=== PATIENT | male | born 1950 | race Caucasian/White ===

== ENCOUNTER 2017-12-29 19:09 | Inpatient (IN) ==
--- NOTE | 2017-12-30 00:22 | P.HPIM ---
History of Present Illness Primary Care Physician: Tomasz Love MD Chief Complaint: Left forearm redness History of Present Illness: 67 y/o male with a history of HTN, DM, Colon cancer, and CAD presented to the ED with complaints of redness and pain to the Left forearm. He states on Saturday he developed a red spot and over the past 2 days it got worse and became inflamed and itching. He denies getting bit by anything or any trauma. No fever , chills, chest pain. He does complain of rib pain when taking a deep breath, intermittently. Inpatient Certification: I certify that the inpatient services were ordered in accordance with Medicare regulations governing the order. This includes certification that hospital inpatient services are reasonable and necessary and in the case of services not specified as inpatient-only under 42 CFR 419.22(n), that they are appropriately provided as inpatient services in accordance to with the 2-midnight benchmark under 43 CFR 412.3(e) Estimated Total Length of Stay (Days): 2 Plans for Post Hospital Care: Home Review of Systems All other systems reviewed negative except as stated in HPI [facility] - History History Provided By: Patient - Medical History Medical History: Medical History (Last Reviewed 12/29/17 @ 17:25 by SHERLY Alexandre) Anxiety Colostomy in place Depression Diabetes GERD (gastroesophageal reflux disease) Hx of colon cancer, stage III Hypertension Osteoarthritis - Surgical History Surgical History: Surgical History (Last Updated 12/29/17 @ 17:05 by Ginger Shannon RN) History of colon resection Hx of heart artery stent Hx of tonsillectomy - Family History Family History: Family History (Last Updated 12/30/17 @ 00:49 by MARTHA Bueno) Brother Family history of colon cancer Father Emphysema lung Mother Emphysema lung - Tobacco History Second Hand Smoke Exposure: No Tobacco Use In Past 30 Days: No Smoking Status: Former smoker (quit 19 years ago) Tobacco Type: Cigarettes - Alcohol History How Often Do You Have a Drink Containing Alcohol: Monthly or less - Substance Use History Substance History: No History of Abuse Medications and Allergies Allergies Allergy/AdvReac Type Severity Reaction Status Date / Time No Known Allergies Allergy Verified 12/29/17 16:48 Home Medications Medication Instructions Recorded Confirmed Type buspirone 5 mg PO TID 12/29/17 12/29/17 History citalopram 40 mg PO DAILY 12/29/17 12/29/17 History lisinopril 5 mg PO DAILY 12/29/17 12/29/17 History meloxicam 7.5 mg PO DAILY 12/29/17 12/29/17 History metformin 1,000 mg PO BID 12/29/17 12/29/17 History metoprolol tartrate 50 mg PO BID 12/29/17 12/29/17 History pantoprazole 20 mg PO BID 12/29/17 12/29/17 History pregabalin [Lyrica] 75 mg PO BID 12/29/17 12/29/17 History ranolazine [Ranexa] 500 mg PO Q12H 12/29/17 12/29/17 History vortioxetine [Trintellix] 10 mg PO DAILY 12/29/17 12/29/17 History Exam Narrative: GENERAL: This is a well-nourished, well-developed patient, in no apparent distress. SKIN: Left forearm cellulites, no drainage CARDIOVASCULAR: Regular rate and rhythm without murmurs, gallops, or rubs. RESPIRATORY: Clear to auscultation. Breath sounds equal bilaterally. No wheezes , rales, or rhonchi. GASTROINTESTINAL: Abdomen soft, non-tender, nondistended. Normal active bowel sounds MUSCULOSKELETAL: Extremities without clubbing, cyanosis, or edema. NEURO: Alert & Oriented x4 to person, place, time, situation. Moves all ext x4 Caprini VTE Risk Assessment Caprini VTE Risk Assessment: No/Low Risk (score <= 1) Caprini Risk Assessment Model: Point Value = 1 Point Value = 2 Point Value = 3 Point Value = 5 Age 41-60 Minor surgery BMI > 25 kg/m2 Swollen legs Varicose veins or History of unexplained or recurrent spontaneous Oral contraceptives or hormone replacement Sepsis (< 1 month) Serious lung disease, including pneumonia (< 1 month) Abnormal pulmonary function Acute myocardial infarction Congestive heart failure (< 1 month) History of inflammatory bowel disease Medical patient at bed rest Age 61-74 Arthroscopic surgery Major open surgery (> 45 min) Laparoscopic surgery (> 45 min) Malignancy Confined to bed (> 72 hours) Immobilizing plaster cast Central venous access Age >= 75 History of VTE Family history of VTE Factor V Leiden Prothrombin [id number] Lupus anticoagulant Anticardiolipin antibodies Elevated serum homocysteine Heparin-induced thrombocytopenia Other congenital or acquired thrombophilia Stroke (< 1 month) Elective arthroplasty Hip, pelvis, or leg fracture Acute spinal cord injury (< 1 month) Prophylaxis Regimen: Total Risk Factor Score Risk Level Prophylaxis Regimen 0-1 Low Early ambulation 2 Moderate Order ONE of the following: *Sequential Compression Device (SCD) *Heparin 5000 units SQ BID 3-4 Higher Order ONE of the following medications: *Heparin 5000 units SQ TID *Enoxaparin/Lovenox 40 mg SQ daily (WT < 150 kg, CrCl > 30 mL/min) *Enoxaparin/Lovenox 30 mg SQ daily (WT < 150 kg, CrCl > 10-29 mL/min) *Enoxaparin/Lovenox 30 mg SQ BID (WT < 150 kg, CrCl > 30 mL/min) AND/OR *Sequential Compression Device (SCD) 5 or more Highest Order ONE of the following medications: *Heparin 5000 units SQ TID (Preferred with Epidurals) *Enoxaparin/Lovenox 40 mg SQ daily (WT < 150 kg, CrCl > 30 mL/min) *Enoxaparin/Lovenox 30 mg SQ daily (WT < 150 kg, CrCl > 10-29 mL/min) *Enoxaparin/Lovenox 30 mg SQ BID (WT < 150 kg, CrCl > 30 mL/min) AND *Sequential Compression Device (SCD) Assessment and Plan - Plan 67 y/o male with a history of HTN, DM, Colon cancer, and CAD presented to the ED with complaints of redness and pain to the Left forearm. Cellulitis, left forearm, SIRS with elevated lactic acid -IV antibiotics: Zosyn and Vancomycin -Cont IVF -Blood cultures pending Hyperglycemia, in patient with DM -Accu checks with SSI Hypertension, chronic -resume home medications, resume home medications DVT prophylaxis: SCDs Discussed Condition With: Patient and RN
[2017-12-30] MEDS ORDERED: Acetaminophen 325 MG Tablet PO PRN (00:23)
[2017-12-30] MEDS ORDERED: Dextrose 50% in Water 50 ML Vial IV.PUSH PRN (00:28)
[2017-12-30] MEDS ORDERED: Sod Chloride 0.9% Inj 1,000 ML IV.CONT SCH (00:30)
[2017-12-30] MEDS ORDERED: Vancomycin Consult Pharmacy 1 EACH OTHER SCH (01:00)
[2017-12-30] MEDS: Piperacil/Tazo 3.375 GM Premix 50 ML IV.SIG SCH ×3 (01:09→12:44)
[2017-12-30] MEDS: Vancomycin Inj 500 MG in Sodium Chlor 0.9% Inj 100 ML IV.SIG ONE ×2 (01:11→01:35)
--- NOTE | 2017-12-30 06:56 | XR ---
EXAM DATE: 12/30/2017 6:52 AM EDT AGE/SEX: 67 years / Male INDICATIONS: Short of breath, evaluate infiltrate CLINICAL DATA: This is the patient's initial encounter. Patient reports that signs and symptoms have been present for 2 days and indicates a pain score of 5/10. MEDICAL/SURGICAL HISTORY: Carcinoma, colon. Cardiovascular disease. Diabetes mellitus type II . cellulitis Colon resection. Colostomy. Coronary artery stent. COMPARISON: No prior exams available for comparison. FINDINGS: A single AP view of the chest demonstrates the lungs to be symmetrically aerated without evidence of mass, infiltrate or effusion. The cardiomediastinal contours are unremarkable. Osseous structures a re intact. Left-sided port with tip in the cavoatrial junction. CONCLUSION: No acute cardiopulmonary disease Electronically signed by: King José MD 12/30/2017 6:55 AM EDT
--- NOTE | 2017-12-30 07:38 | P.PN ---
Subjective Interval history: 67 y/o male with a history of HTN, DM, Colon cancer, and CAD presented to the ED with complaints of redness and pain to the Left forearm. He states on Saturday he developed a red spot and over the past 2 days it got worse and became inflamed and itching. He denies getting bit by anything or any trauma. No fever , chills, chest pain. He does complain of rib pain when taking a deep breath, intermittently. 12/30 - patient states left arm is unchanged. He has continued pain, swelling and redness. He states [place] is not helping. He has hx of right ankle fracture last year with no followup. He also reports hx of colon cancer s/p resection and colostomy 3 years ago. He actively follows with Dr. Moreno in [place]. He denies any fever or chills. He denies any chest pain or shortness of breath. He is afebrile. VSS except for elevated BP. Physical Exam Vital signs: Vital Signs 12/30/17 00:00 12/30/17 00:33 Temperature 98.5 F 98.1 F Pulse Rate 89 92 H Respiratory Rate 18 18 Blood Pressure 183/77 H 211/97 H Pulse Oximetry 99 97 Intake & Output 12/29/17 12/30/17 12/30/17 18:59 06:59 18:59 Intake Total 50 / 50 Balance 50 / 50 Weight 63.503 kg Intake: IV 50 / 50 Zosyn 3.375 GM Premix 50 ML @ 50 / 50 100 mls/hr IV.SIG Q6H [facility] Rx#: [id number] Other: Date of Last Bowel Movement 12/29/17 Weight On Admission 63.796 kg Narrative: GENERAL: WDWN male patient, INAD. Awake and alert. Oriented x 4. SKIN: Warm and dry. LUE + mild edema in hand extending up forearm with significant erythema and warmth over volar surface. +Tender to palpation. No discrete abscess appreciated. HEAD: Atraumatic. Normocephalic. EYES: Pupils equal and round. No scleral icterus. No injection or drainage. ENT: No nasal bleeding or discharge. Mucous membranes pink and moist. NECK: Trachea midline. No JVD. CARDIOVASCULAR: Regular rate and rhythm. No murmur appreciated. RESPIRATORY: No accessory muscle use. Clear to auscultation. Breath sounds equal bilaterally. GASTROINTESTINAL: Abdomen soft, non-tender, nondistended. +Colostomy LLQ. MUSCULOSKELETAL: LUE as stated above. Right ankle with edema noted around ankle. Decreased ROM. NEUROLOGICAL: Awake and alert. No obvious cranial nerve deficits. Motor grossly within normal limits. No focal neurologic finding appreciated. Normal speech. PSYCHIATRIC: Appropriate mood and affect; insight and judgment normal. Results - Labs CBC & Chem 7: 12/30/17 08:05 12/30/17 08:05 Laboratory Results - last 24 hr 12/30/17 07:28 POC Glucose 254 H - Imaging Impressions Chest X-Ray 12/30/17 00:00 CONCLUSION: No acute cardiopulmonary disease - Procedures None Assessment and Plan - Assessment (1) Cellulitis of arm, left Code(s): L03.114 - Cellulitis of left upper limb Status: Acute (2) SIRS (systemic inflammatory response syndrome) Code(s): R65.10 - Systemic inflammatory response syndrome (SIRS) of non- infectious origin without acute organ dysfunction Status: Acute (3) Diabetes mellitus with hyperglycemia Code(s): E11.65 - Type 2 diabetes mellitus with hyperglycemia Status: Acute - Plan 67 y/o male with a history of HTN, DM, Colon cancer, and CAD presented to the ED with complaints of redness and pain to the Left forearm. Cellulitis, left forearm, SIRS with elevated lactic acid -continue on IV abx Zosyn and Vancomycin - pharmacy to dose -Consult ID, appreciate assistance -Obtain soft tissue US LUE r/o underlying abscess -Blood cultures pending, continue to follow until finalized -monitor clinically for improvement -pain management with bowel regimen -PT/OT eval/tx Hyperglycemia, in patient with DM -obtain Hgb A1c -continue patient on home dose of Metformin -continue Accu checks with SSI -change to diabetic diet Hypertension, chronic, uncontrolled -resume on home medications -Clonidine prn with parameters -monitor BP and adjust treatment accordingly CAD s/p cardiac stent patient has no cardiac complaints at present -Continue on home dose of Ranexa -monitor Hx of right ankle fracture patient did not follow up with orthopedic as outpatient due to insurance costs -obtain XR right ankle -PT eval/tx Depression -continue on home dose of Buspar and Celexa DVT prophylaxis: SCDs Code Status: FULL Discussed Condition With: patient, nursing staff, CM Discharge Planning: Not ready for discharge. Discharge pending clinical improvement and ID clearance.
[2017-12-30] MEDS: Meloxicam 7.5 MG Tablet PO SCH (08:46)
[2017-12-30] MEDS: Lisinopril 5 MG Tablet PO SCH (08:47)
[2017-12-30] MEDS: Ranolazine 500 MG 12HR ER Tablet PO SCH ×2 (08:47→22:21)
[2017-12-30] MEDS: Pantoprazole Sodium 20 MG DR Tablet PO SCH ×2 (08:47→22:21)
[2017-12-30] MEDS: Pregabalin 75 MG Capsule PO SCH ×2 (08:47→22:20)
[2017-12-30] MEDS: Metoprolol Tartrate 50 MG Tablet PO SCH ×2 (08:47→22:20)
[2017-12-30] MEDS: Insulin NovoLOG Aspart Correctional Sugar Inj SQ SCH ×4 (08:48→22:22)
[2017-12-30 09:26] LABS: Baso % (Auto) 0.6 % (0.0-2.0); Eos # (Auto) 0.2 th/mm3 (0.0-0.4); Eos % (Auto) 3.2 % (0.0-4.0); Hematocrit 32.8 % (39.0-51.0); Hemoglobin 11.2 gm/dL (13.0-17.0); Lymph # (Auto) 1.8 th/mm3 (1.0-4.8); Lymph % (Auto) 23.7 % (9.0-44.0); Mean Corpuscular HGB Conc 34.1 % (32.0-36.0); Mean Corpuscular Hemoglobin 31.6 pg (27.0-34.0); Mean Corpuscular Volume 92.6 fL (80.0-100.0); Mean Platelet Volume 8.4 fL (7.0-11.0); Mono # (Auto) 0.6 th/mm3 (0.0-0.9); Mono % (Auto) 8.4 % (0.0-8.0); Neut # (Auto) 4.8 th/mm3 (1.8-7.7); Neut % (Auto) 64.1 % (16.0-70.0); Platelet Count 126 th/mm3 (150-450); Red Blood Count 3.54 mil/mm3 (4.50-5.90); Red Cell Distribution Width 14.9 % (11.6-17.2); White Blood Count 7.5 th/mm3 (4.0-11.0)
[2017-12-30 09:49] LABS: Albumin 2.3 g/dL (3.4-5.0); Anion Gap 7 meq/L (5-15); Aspartate Aminotransferase 41 U/L (15-37); Blood Urea Nitrogen 17 mg/dL (7-18); Calcium 7.9 mg/dL (8.5-10.1); Carbon Dioxide 24.6 meq/L (21.0-32.0); Chloride 102 meq/L (98-107); Glomerular Filtration Rate Greater Than 89 mL/min (>89); Glucose,Random 263 mg/dL (74-106); Potassium 3.8 meq/L (3.5-5.1); Sodium 134 meq/L (136-145)
[2017-12-30 09:51] LABS: Alanine Aminotransferase 62 U/L (12-78)
[2017-12-30 09:52] LABS: Alkaline Phosphatase 203 U/L (45-117); Total Protein 7.7 g/dL (6.4-8.2)
--- NOTE | 2017-12-30 10:21 | US ---
EXAM DATE: 12/30/2017 10:03 AM EDT AGE/SEX: 67 years / Male INDICATIONS: Left forearm pain and redness. Cellulitis. CLINICAL DATA: This is the patient's initial encounter. Patient reports that signs and symptoms have been present for 4 - 6 days and indicates a pain score of 3/10. MEDICAL/SURGICAL HISTORY: Gastroesophageal reflux disease. Diabetes. Osteoarthritis. Colon c ancer. HTN. CAD. Colon resection. Tonsillectomy. Colostomy. COMPARISON: No prior exams available for comparison. FINDINGS: Cellulitis without deep space fluid collection CONCLUSION: 1. Negative for abscess Electronically signed by: Lizandro Hernandez MD 12/30/2017 10:20 AM EDT
--- NOTE | 2017-12-30 11:17 | XR ---
EXAM DATE: 12/30/2017 11:07 AM EDT AGE/SEX: 67 years / Male INDICATIONS: Right ankle pain. CLINICAL DATA: This is the patient's initial encounter. Patient reports that signs and symptoms have been present for > 1 year and indicates a pain score of 8/10. MEDICAL/SURGICAL HISTORY: . cellulitis and injury 1 year ago., diabetic None. COMPARISON: No prior exams available for comparison. FINDINGS: Significant pes planus deformity generalized soft tissue swelling and degenerative changes about the ankle. Ankle fracture is not appreciated. Significant degenerative changes at the tarsal joints. 3 views of the foot are suggested. CONCLUSION: Negative for ankle fracture. Marked soft tissue swelling. 3 views of the foot are suggested. Electronically signed by: Lizandro Hernandez MD 12/30/2017 11:15 AM EDT
--- NOTE | 2017-12-30 11:40 | P.CONID ---
History of Present Illness Service: Infectious disease Consult date: 12/30/17 Requesting Physician: Ginger Spivey Reason for Consult: Evaluation and Mment of Left foream cellulitis. Primary Care Provider: Tomasz Love MD Chief Complaint: Left forearm redness History of Present Illness: is a 67 y/o CM with medical history significant for coronary artery disease, hypertension, diabetes as well as colon cancer. Regarding his colon cancer he reports that his last chemotherapy was approximately 1.[address] abdomen pelvis and further evaluation revealed that he is now in remission. He reports following with an oncologist in [place]. He has a port that was used for chemotherapy in the past and has not been accessed recently. Patient reports that he presented to the emergency department with redness and pain to the left forearm. He reports that it started a day or 2 prior to admission when he noted a red spot which looked like a pimple which he tried to mess with an open it up. Subsequently he noticed that this area became worse with increased erythema and itching. Patient denies any fever chills chest pain shortness of breath. Patient denies any pain in his left shoulder. Patient denies any night sweats or weight loss. Patient has been started on empiric antibiotics and infectious disease is consulted for evaluation and management of left forearm cellulitis. Review of Systems All other systems reviewed negative except as stated in HPI [facility] - History History Provided By: Patient - Medical History Medical History: Medical History (Last Reviewed 12/29/17 @ 17:25 by SHERLY Alexandre) Anxiety Colostomy in place Depression Diabetes GERD (gastroesophageal reflux disease) Hx of colon cancer, stage III Hypertension Osteoarthritis - Surgical History Surgical History: Surgical History (Last Updated 12/29/17 @ 17:05 by Ginger Shannon RN) History of colon resection Hx of heart artery stent Hx of tonsillectomy - Family History Family History: Family History (Last Updated 12/30/17 @ 00:49 by MARTHA Bueno) Brother Family history of colon cancer Father Emphysema lung Mother Emphysema lung - Tobacco History Second Hand Smoke Exposure: No Tobacco Use In Past 30 Days: No Smoking Status: Former smoker Tobacco Type: Cigarettes - Alcohol History How Often Do You Have a Drink Containing Alcohol: Monthly or less - Substance Use History Substance History: No History of Abuse - Travel History Recent Travel in the [facility] Within the Last 8 Weeks: No Recent Travel Out of the Country Within the Last 8 Weeks: No - Immunization History Hx Influenza Vaccine This Season: Yes Medications and Allergies Active Medications: Active Medications Acetaminophen (Tylenol) 650 mg PO Q4H PRN PRN Reason: Temp > 100.4 Hydrocodone Bitart/Acetaminophen (Chapin 5/325) 1 tab PO Q4H PRN PRN Reason: Pain 1 to 10 Last Admin: 12/30/17 08:47 Dose: 1 tab Buspirone HCl (Buspar) 5 mg PO TID [facility] Last Admin: 12/30/17 08:47 Dose: 5 mg Citalopram Hydrobromide (Celexa) 40 mg PO DAILY [facility] Last Admin: 12/30/17 08:47 Dose: 40 mg Clonidine HCl (Catapres) 0.1 mg PO Q6H PRN PRN Reason: SBP>180, DBP>95 Dextrose (D50w Vial) 50 ml IV.PUSH UNSCH PRN PRN Reason: PER HYPOGLYCEMIA PROTOCOL Glucagon (Glucagon Inj) 1 mg OTHER PRN PRN PRN Reason: for Hypoglycemia Protocol Pharmacy Profile Note (Vancomycin Consult Pharmacy) 0 mls @ 0 mls/hr OTHER UNSCH [facility] Piperacillin/Tazobactam/Dextrose (Zosyn 3.375 Gm Premix) 50 mls @ 100 mls/hr IV.SIG Q6H [facility] Last Infusion: 12/30/17 08:06 Dose: Infused Vancomycin HCl 1,000 mg/ (Sodium Chloride) 250 mls @ 250 mls/hr IV.SIG Q12H [facility] Insulin Aspart (Novolog Insulin Correctional Sugar Inj) 0 unit SQ ACHS [facility]; Protocol Last Admin: 12/30/17 08:48 Dose: 7 unit Lisinopril (Prinivil) 5 mg PO DAILY [facility] Last Admin: 12/30/17 08:47 Dose: 5 mg Meloxicam (Mobic) 7.5 mg PO DAILY [facility] Last Admin: 12/30/17 08:46 Dose: 7.5 mg Metformin HCl (Glucophage) 1,000 mg PO BID [facility] Last Admin: 12/30/17 08:47 Dose: 1,000 mg Metoprolol Tartrate (Lopressor) 50 mg PO BID [facility] Last Admin: 12/30/17 08:47 Dose: 50 mg Miscellaneous Information ([facility] Ordered Lab Info) 0 each OTHER ONCE ONE Stop: 12/31/17 13:46 Non-Formulary Medication (Vortioxetine [Trintellix]) 10 mg PO DAILY [facility] Ondansetron HCl (Zofran Inj) 4 mg IV.PUSH Q6H PRN PRN Reason: NAUSEA OR VOMITING Pantoprazole Sodium (Protonix) 20 mg PO BID [facility] Last Admin: 12/30/17 08:47 Dose: 20 mg Pregabalin (Lyrica) 75 mg PO BID [facility] Last Admin: 12/30/17 08:47 Dose: 75 mg Ranolazine (Ranexa) 500 mg PO Q12H [facility] Last Admin: 12/30/17 08:47 Dose: 500 mg Sodium Chloride (Ns Flush) 2 ml IV.FLUSH BID [facility] Last Admin: 12/30/17 08:49 Dose: 2 ml Sodium Chloride (Ns Flush) 2 ml IV.FLUSH PRN PRN PRN Reason: FLUSH AFTER USING IV ACCESS Allergies Allergy/AdvReac Type Severity Reaction Status Date / Time No Known Allergies Allergy Verified 12/29/17 16:48 Home Medications Medication Instructions Recorded Confirmed Type buspirone 5 mg PO TID 12/29/17 12/29/17 History citalopram 40 mg PO DAILY 12/29/17 12/29/17 History lisinopril 5 mg PO DAILY 12/29/17 12/29/17 History meloxicam 7.5 mg PO DAILY 12/29/17 12/29/17 History metformin 1,000 mg PO BID 12/29/17 12/29/17 History metoprolol tartrate 50 mg PO BID 12/29/17 12/29/17 History pantoprazole 20 mg PO BID 12/29/17 12/29/17 History pregabalin [Lyrica] 75 mg PO BID 12/29/17 12/29/17 History ranolazine [Ranexa] 500 mg PO Q12H 12/29/17 12/29/17 History vortioxetine [Trintellix] 10 mg PO DAILY 12/29/17 12/29/17 History Exam Vital signs: Vital Signs 12/30/17 00:00 12/30/17 00:33 12/30/17 01:41 Temperature 98.5 F 98.1 F Pulse Rate 89 92 H 101 H Respiratory Rate 18 18 Blood Pressure 183/77 H 211/97 H Pulse Oximetry 99 97 12/30/17 04:00 12/30/17 04:47 12/30/17 08:00 Temperature 97.9 F 97.3 F L Pulse Rate 73 77 72 Respiratory Rate 18 22 Blood Pressure 175/74 H 186/77 H Pulse Oximetry 98 97 12/30/17 09:42 Temperature Pulse Rate Respiratory Rate 16 Blood Pressure Pulse Oximetry Intake & Output 12/29/17 12/30/17 12/30/17 18:59 06:59 18:59 Intake Total 50 / 50 1150 / 1150 Balance 50 / 50 1150 / 1150 Weight 63.503 kg Intake: IV 50 / 50 1150 / 1150 NS Inj 1,000 ML @ 100 mls/hr IV 1000 / 1000 .CONT .Q10H [facility] Rx#:[id number] Zosyn 3.375 GM Premix 50 ML @ 50 / 50 50 / 50 100 mls/hr IV.SIG Q6H [facility] Rx#: [id number] Vancomycin Inj 500 MG In NS Inj 100 / 100 100 ML @ 200 mls/hr IV.SIG ONCE ONE Rx#:[id number] Other: # Voids 2 Date of Last Bowel Movement 12/29/17 12/30/17 Weight On Admission 63.796 kg Narrative: GENERAL: Well-nourished well-developed, not in acute distress SKIN: Cool and dry, no generalized rash HEAD: Atraumatic. Normocephalic. No temporal or scalp tenderness. EYES: Pupils equal round and reactive. Scleral icterus. No injection or drainage. No petechia ENT: Nothing abnormal detected NECK: Trachea midline. Supple, nontender, no meningeal signs. CARDIOVASCULAR: HS audible. RESPIRATORY: Clear to auscultation bilaterally. GASTROINTESTINAL: Abdomen soft nontender. Ostomy and prior surgical site ok. MUSCULOSKELETAL: Left forearm with significant erythema and induration noted. Some wrinkling of the skin noted. No obvious fluid collection noted. Good range of movement at the wrist joint as well as fingers. NEUROLOGICAL: Alert oriented 3. Nonfocal. Psych cooperative IV line sites ok. Port site ok. Results - Labs CBC & Chem 7: 12/30/17 08:05 12/30/17 08:05 Labs: Laboratory Results - last 24 hr 12/30/17 12/30/17 12/30/17 07:10 07:28 08:05 WBC 7.5 RBC 3.54 L Hgb 11.2 L Hct 32.8 L MCV 92.6 MCH 31.6 MCHC 34.1 RDW 14.9 Plt Count 126 L MPV 8.4 Neut % (Auto) 64.1 Lymph % (Auto) 23.7 Banner % (Auto) 8.4 H Eos % (Auto) 3.2 Baso % (Auto) 0.6 Neut # (Auto) 4.8 Lymph # (Auto) 1.8 Banner # (Auto) 0.6 Eos # (Auto) 0.2 Baso # (Auto) 0.0 WBC Differential . Differential Comment Auto diff final Sodium Potassium Chloride Carbon Dioxide Anion Gap BUN Creatinine Estimated GFR POC Glucose 254 H Random Glucose Lactic Acid 1.0 Calcium Total Bilirubin AST ALT Alkaline Phosphatase Total Protein Albumin 12/30/17 12/30/17 08:05 11:09 WBC RBC Hgb Hct MCV MCH MCHC RDW Plt Count MPV Neut % (Auto) Lymph % (Auto) Banner % (Auto) Eos % (Auto) Baso % (Auto) Neut # (Auto) Lymph # (Auto) Banner # (Auto) Eos # (Auto) Baso # (Auto) WBC Differential Differential Comment Sodium 134 L Potassium 3.8 Chloride 102 Carbon Dioxide 24.6 Anion Gap 7 BUN 17 Creatinine 0.76 Estimated GFR Greater than 89 POC Glucose 312 H Random Glucose 263 H D Lactic Acid Calcium 7.9 L Total Bilirubin 0.7 AST 41 H ALT 62 Alkaline Phosphatase 203 H Total Protein 7.7 D Albumin 2.3 L - Imaging Impressions Ankle X-Ray 12/30/17 00:00 CONCLUSION: Negative for ankle fracture. Marked soft tissue swelling. 3 views of the foot are suggested. Chest X-Ray 12/30/17 00:00 CONCLUSION: No acute cardiopulmonary disease Upper Extremity Ultrasound 12/30/17 00:00 CONCLUSION: 1. Negative for abscess Assessment and Plan - Plan Left forearm cellulitis. Colon cancer with colostomy in place. Port in place. Immunocompromised host. CAD, HTN Recs: Continue Vanco IV (target 10-15) Discontinue Zosyn IV. Remove PIV line in left forearm (infected arm avoid IV lines on this LUE) DORIS wrap and elevation of LUE in sling as tolerated. If continues to improve will consider transition to oral antibiotics. Will follow in am to decide. amarilis RN about PIV and DORIS wrap elevation of LUE. amarilis patient plan for the day.
[2017-12-30] MEDS: Vancomycin Inj 1,000 MG in Sodium Chlor 0.9% Inj 250 ML IV.SIG SCH (15:41)
[2017-12-30 16:13] LABS: Hemoglobin A1c 9.4 % (4.3-6.0)
[2017-12-30] MEDS ORDERED: Insulin Detemir Inj 1,000 UNIT/10 ML Vial SQ SCH (21:00)
[2017-12-31] MEDS: Vancomycin Inj 1,000 MG in Sodium Chlor 0.9% Inj 250 ML IV.SIG SCH ×2 (01:22→16:30)
[2017-12-31 07:45] LABS: Baso % (Auto) 0.5 % (0.0-2.0); Eos # (Auto) 0.2 th/mm3 (0.0-0.4); Eos % (Auto) 3.5 % (0.0-4.0); Hematocrit 33.2 % (39.0-51.0); Hemoglobin 11.4 gm/dL (13.0-17.0); Lymph # (Auto) 1.7 th/mm3 (1.0-4.8); Lymph % (Auto) 24.3 % (9.0-44.0); Mean Corpuscular HGB Conc 34.2 % (32.0-36.0); Mean Corpuscular Hemoglobin 31.3 pg (27.0-34.0); Mean Corpuscular Volume 91.6 fL (80.0-100.0); Mean Platelet Volume 8.5 fL (7.0-11.0); Mono # (Auto) 0.6 th/mm3 (0.0-0.9); Mono % (Auto) 8.9 % (0.0-8.0); Neut # (Auto) 4.4 th/mm3 (1.8-7.7); Neut % (Auto) 62.8 % (16.0-70.0); Platelet Count 124 th/mm3 (150-450); Red Blood Count 3.62 mil/mm3 (4.50-5.90)
[2017-12-31 08:08] LABS: Calcium 8.2 mg/dL (8.5-10.1); Carbon Dioxide 25.3 meq/L (21.0-32.0); Potassium 3.9 meq/L (3.5-5.1)
[2017-12-31] MEDS: Insulin NovoLOG Aspart Correctional Sugar Inj SQ SCH ×4 (08:43→21:02)
[2017-12-31] MEDS: Insulin Detemir Inj 1,000 UNIT/10 ML Vial SQ SCH ×2 (08:43→21:02)
[2017-12-31] MEDS: Pantoprazole Sodium 20 MG DR Tablet PO SCH ×2 (08:44→21:01)
[2017-12-31] MEDS: Pregabalin 75 MG Capsule PO SCH ×2 (08:44→21:01)
[2017-12-31] MEDS: Ranolazine 500 MG 12HR ER Tablet PO SCH ×2 (08:44→21:01)
[2017-12-31] MEDS: Metoprolol Tartrate 50 MG Tablet PO SCH ×2 (08:44→21:01)
[2017-12-31] MEDS: Meloxicam 7.5 MG Tablet PO SCH (08:45)
[2017-12-31] MEDS: Lisinopril 5 MG Tablet PO SCH (08:46)
[2017-12-31] MEDS ORDERED: VORTIOXETINE 10 MG PO SCH (09:00)
[2017-12-31] MEDS ORDERED: Diatrizoate Meglum/Diatrizoate Sod Liq 9 ML UDC PO ONE (10:49)
--- NOTE | 2017-12-31 11:43 | P.PN ---
Subjective Interval history: 67 y/o male with a history of HTN, DM, Colon cancer, and CAD presented to the ED with complaints of redness and pain to the Left forearm. He states on Saturday he developed a red spot and over the past 2 days it got worse and became inflamed and itching. He denies getting bit by anything or any trauma. No fever , chills, chest pain. He does complain of rib pain when taking a deep breath, intermittently. 12/30 - patient states left arm is unchanged. He has continued pain, swelling and redness. He states [place] is not helping. He has hx of right ankle fracture last year with no followup. He also reports hx of colon cancer s/p resection and colostomy 3 years ago. He actively follows with Dr. Moreno in [place]. He denies any fever or chills. He denies any chest pain or shortness of breath. He is afebrile. VSS except for elevated BP. 12/31 - patient reports improvement in left arm swelling, redness and pain. He complains of dull bilateral rib pain with deep inspiration that has been ongoing for the past several months. He denies any associated chest pain. Otherwise, patient states he feels well and has no new medical complaints. He denies any fever or chills. Denies any nausea, vomiting or abdominal pain. Physical Exam Vital signs: Vital Signs 12/30/17 15:49 12/30/17 20:00 12/31/17 00:00 Temperature 97.6 F 98.7 F 98.4 F Pulse Rate 59 L 69 69 Respiratory Rate 21 20 19 Blood Pressure 126/60 163/75 H 167/69 H Pulse Oximetry 95 99 98 12/31/17 01:21 12/31/17 04:00 12/31/17 08:00 Temperature 98.2 F 98.3 F Pulse Rate 68 65 Respiratory Rate 18 19 20 Blood Pressure 157/71 H 155/71 H Pulse Oximetry 99 98 Intake & Output 12/30/17 12/31/17 12/31/17 18:59 06:59 18:59 Intake Total 1810 / 1810 691 / 691 Output Total 300 / 300 700 / 700 Balance 1510 / 1510 -9 / -9 Weight 65.5 kg Intake: IV 1450 / 1450 250 / 250 NS Inj 1,000 ML @ 100 mls/hr IV 1000 / 1000 .CONT .Q10H [facility] Rx#:[id number] Zosyn 3.375 GM Premix 50 ML @ 100 / 100 100 mls/hr IV.SIG Q6H [facility] Rx#: [id number] Vancomycin Inj 1,000 MG In NS 250 / 250 250 / 250 Inj 250 ML @ 250 mls/hr IV.SIG Q12H [facility] Rx#:[id number] Vancomycin Inj 500 MG In NS Inj 100 / 100 100 ML @ 200 mls/hr IV.SIG ONCE ONE Rx#:[id number] Oral 360 / 360 441 / 441 Output: Urine 700 / 700 Stool 300 / 300 Other: # Voids 2 Date of Last Bowel Movement 12/30/17 12/30/17 Narrative: GENERAL: WDWN male patient, INAD. Awake and alert. Oriented x 4. Appears comfortable. SKIN: Warm and dry. LUE + mild edema in hand extending up forearm with significant erythema and warmth over volar surface, improving with decreasing erythema and edema. +Tender to palpation. No discrete abscess appreciated. HEENT: Atraumatic. Normocephalic. Pupils equal and round. No scleral icterus. No injection or drainage. No nasal bleeding or discharge. Mucous membranes pink and moist. NECK: Trachea midline. Airway patent. CARDIOVASCULAR: Regular rate and rhythm. No murmur appreciated. RESPIRATORY: No accessory muscle use. Clear to auscultation. Breath sounds equal bilaterally. GASTROINTESTINAL: Abdomen soft, non-tender, nondistended. +Colostomy LLQ. +BS. MUSCULOSKELETAL: LUE as stated above. Right ankle with edema noted around ankle. Decreased ROM. NEUROLOGICAL: Awake and alert. No obvious cranial nerve deficits. Motor grossly within normal limits. No focal neurologic finding appreciated. Normal speech. PSYCHIATRIC: Appropriate mood and affect; insight and judgment normal. Results - Labs CBC & Chem 7: 12/31/17 05:40 12/31/17 05:40 Laboratory Results - last 24 hr 12/30/17 12/30/17 12/30/17 08:05 16:45 21:49 WBC RBC Hgb Hct MCV MCH MCHC RDW Plt Count MPV Neut % (Auto) Lymph % (Auto) [place] % (Auto) Eos % (Auto) Baso % (Auto) Neut # (Auto) Lymph # (Auto) [place] # (Auto) Eos # (Auto) Baso # (Auto) WBC Differential Differential Comment Sodium Potassium Chloride Carbon Dioxide Anion Gap BUN Creatinine Estimated GFR POC Glucose 126 H 285 H Random Glucose Hemoglobin A1c 9.4 H Calcium 12/31/17 12/31/17 12/31/17 05:40 05:40 07:00 WBC 7.0 RBC 3.62 L Hgb 11.4 L Hct 33.2 L MCV 91.6 MCH 31.3 MCHC 34.2 RDW 15.0 Plt Count 124 L MPV 8.5 Neut % (Auto) 62.8 Lymph % (Auto) 24.3 [place] % (Auto) 8.9 H Eos % (Auto) 3.5 Baso % (Auto) 0.5 Neut # (Auto) 4.4 Lymph # (Auto) 1.7 [place] # (Auto) 0.6 Eos # (Auto) 0.2 Baso # (Auto) 0.0 WBC Differential . Differential Comment Auto diff final Sodium 137 Potassium 3.9 Chloride 103 Carbon Dioxide 25.3 Anion Gap 9 BUN 18 Creatinine 0.90 Estimated GFR 84 L POC Glucose 222 H Random Glucose 223 H Hemoglobin A1c Calcium 8.2 L 12/31/17 11:17 WBC RBC Hgb Hct MCV MCH MCHC RDW Plt Count MPV Neut % (Auto) Lymph % (Auto) [place] % (Auto) Eos % (Auto) Baso % (Auto) Neut # (Auto) Lymph # (Auto) [place] # (Auto) Eos # (Auto) Baso # (Auto) WBC Differential Differential Comment Sodium Potassium Chloride Carbon Dioxide Anion Gap BUN Creatinine Estimated GFR POC Glucose 178 H Random Glucose Hemoglobin A1c Calcium - Imaging ITS Impressions Ankle X-Ray 12/30/17 00:00 CONCLUSION: Negative for ankle fracture. Marked soft tissue swelling. 3 views of the foot are suggested. Chest X-Ray 12/30/17 00:00 CONCLUSION: No acute cardiopulmonary disease Upper Extremity Ultrasound 12/30/17 00:00 CONCLUSION: 1. Negative for abscess - Procedures None Assessment and Plan - Assessment (1) Cellulitis of arm, left Code(s): L03.114 - Cellulitis of left upper limb Status: Acute (2) SIRS (systemic inflammatory response syndrome) Code(s): R65.10 - Systemic inflammatory response syndrome (SIRS) of non- infectious origin without acute organ dysfunction Status: Acute (3) Diabetes mellitus with hyperglycemia Code(s): E11.65 - Type 2 diabetes mellitus with hyperglycemia Status: Acute - Plan 67 y/o male with a history of HTN, DM, Colon cancer, and CAD presented to the ED with complaints of redness and pain to the Left forearm. Cellulitis, left forearm, SIRS with elevated lactic acid, improving Soft tissue US negative for underlying abscess -ID following, appreciate assistance. Continue on IV vancomycin. -monitor clinically for improvement -pain management with bowel regimen -PT/OT eval - no needs identified DM, poorly controlled Hgb A1c 9.4 -continue patient on home dose of Metformin -started on Levemir 5u BID, BS still running in mid to high 200s. Increase to 10U BID. -continue Accu checks with SSI Hypertension, chronic, uncontrolled -Bp improved but still elevated. Continue on lisinopril 5 mg daily and metoprolol 50 mg twice daily. May need to increase lisinopril dose if BP remains elevated. -Clonidine prn with parameters -monitor BP and adjust treatment accordingly CAD s/p cardiac stent patient has no cardiac complaints at present -Continue on home dose of Ranexa -monitor Hx of right ankle fracture with persistent pain patient did not follow up with orthopedic as outpatient due to insurance costs XR right ankle negative for fracture but shows marked soft tissue swelling, 3 views of the foot recommended. -XR 3v right foot Bilateral rib pain with deep inspiration ?etiology, CXR unremarkable, patient is not in any respiratory distress, pulse Ox 98% on RA -DW Dr. Givens, given history of colon cancer will obtain CT of the abdomen and pelvis for further evaluation Depression -continue on home dose of Buspar and Celexa DVT prophylaxis: SCDs Code Status: FULL Discussed Condition With: Patient, RN, case management, Dr. Givens Discharge Planning: Not ready for discharge. Discharge pending clinical improvement and ID clearance. Also needs CT abd/pelvis.
--- NOTE | 2017-12-31 12:05 | XR ---
EXAM DATE: 12/31/2017 11:10 AM EDT AGE/SEX: 67 years / Male INDICATIONS: Right foot pain. CLINICAL DATA: This is the patient's initial encounter. Patient reports that signs and symptoms have been present for > 1 year and indicates a pain score of 10/10. MEDICAL/SURGICAL HISTORY: . hurt right foot 1 year ago None. COMPARISON: [facility] [place], ANKLE LIMITED RIGHT 2V, 12/30/2017. . FINDINGS: Marked decrease in Boehler's angle with a pes planus deformity. Extensive osseous destruction of the mid tarsal bones including the talonavicular and calcaneocuboid articulations and proximal aspect of the cuneiforms. Spectrum of findings are concerning for a Charcot foot. There is diffuse osseous julian neralization of the metatarsals and phalanges of the defect osseous structures appear to be intact. S mall calcaneal spur at the plantar aponeurosis. There is some atherosclerotic calcification of the re gional vasculature CONCLUSION: 1. Severe degenerative changes with bony erosion and deformity mid tarsal bones as detailed above. I n combination with a headache planar deformity, findings are concerning for a Charcot foot. 2. No acute fracture. Diffuse osseous demineralization. Electronically signed by: Raphael Mayorga MD 12/31/2017 12:03 PM EDT
--- NOTE | 2017-12-31 13:32 | P.PNID ---
Subjective Remarks: is a 67 y/o CM with medical history significant for coronary artery disease, hypertension, diabetes as well as colon cancer. Regarding his colon cancer he reports that his last chemotherapy was approximately 1.[address] abdomen pelvis and further evaluation revealed that he is now in remission. He reports following with an oncologist in [place]. He has a port that was used for chemotherapy in the past and has not been accessed recently. Patient reports that he presented to the emergency department with redness and pain to the left forearm. He reports that it started a day or 2 prior to admission when he noted a red spot which looked like a pimple which he tried to mess with an open it up. Subsequently he noticed that this area became worse with increased erythema and itching. Patient denies any fever chills chest pain shortness of breath. Patient denies any pain in his left shoulder. Patient denies any night sweats or weight loss. Patient has been started on empiric antibiotics and infectious disease is consulted for evaluation and management of left forearm cellulitis. Overnight events reviewed No fever No rash No diarrhea Complains of pain on deep inspiration. Hand elevated at time of my visit. Antibiotics: Vanco IV Lines: Line sites with no e.o infection Past Medical History: reviewed. Allergies/Adverse Reactions: Allergies No Known Allergies Allergy (Verified 12/29/17 16:48) Objective Vital Signs 12/30/17 15:49 12/30/17 20:00 12/31/17 00:00 Temperature 97.6 F 98.7 F 98.4 F Pulse Rate 59 L 69 69 Respiratory Rate 21 20 19 Blood Pressure 126/60 163/75 H 167/69 H Pulse Oximetry 95 99 98 12/31/17 01:21 12/31/17 04:00 12/31/17 08:00 Temperature 98.2 F 98.3 F Pulse Rate 68 65 Respiratory Rate 18 19 20 Blood Pressure 157/71 H 155/71 H Pulse Oximetry 99 98 Intake & Output 12/30/17 12/31/17 12/31/17 18:59 06:59 18:59 Intake Total 1810 / 1810 691 / 691 Output Total 300 / 300 700 / 700 Balance 1510 / 1510 -9 / -9 Weight 65.5 kg Intake: IV 1450 / 1450 250 / 250 NS Inj 1,000 ML @ 100 mls/hr IV 1000 / 1000 .CONT .Q10H [facility] Rx#:[id number] Zosyn 3.375 GM Premix 50 ML @ 100 / 100 100 mls/hr IV.SIG Q6H [facility] Rx#: [id number] Vancomycin Inj 1,000 MG In NS 250 / 250 250 / 250 Inj 250 ML @ 250 mls/hr IV.SIG Q12H [facility] Rx#:[id number] Vancomycin Inj 500 MG In NS Inj 100 / 100 100 ML @ 200 mls/hr IV.SIG ONCE ONE Rx#:[id number] Oral 360 / 360 441 / 441 Output: Urine 700 / 700 Stool 300 / 300 Other: # Voids 2 Date of Last Bowel Movement 12/30/17 12/30/17 Lab - Hematology Results 12/30/17 12/31/17 08:05 05:40 WBC 7.5 7.0 RBC 3.54 L 3.62 L Hgb 11.2 L 11.4 L Hct 32.8 L 33.2 L MCV 92.6 91.6 MCH 31.6 31.3 MCHC 34.1 34.2 RDW 14.9 15.0 Plt Count 126 L 124 L MPV 8.4 8.5 Neut % (Auto) 64.1 62.8 Lymph % (Auto) 23.7 24.3 [place] % (Auto) 8.4 H 8.9 H Eos % (Auto) 3.2 3.5 Baso % (Auto) 0.6 0.5 Neut # (Auto) 4.8 4.4 Lymph # (Auto) 1.8 1.7 [place] # (Auto) 0.6 0.6 Eos # (Auto) 0.2 0.2 Baso # (Auto) 0.0 0.0 WBC Differential . . Differential Comment Auto diff final Auto diff final Lab - Chemistry Results 12/30/17 12/30/17 12/30/17 07:10 07:28 08:05 Sodium 134 L Potassium 3.8 Chloride 102 Carbon Dioxide 24.6 Anion Gap 7 BUN 17 Creatinine 0.76 Estimated GFR Greater than 89 POC Glucose 254 H Random Glucose 263 H D Hemoglobin A1c Lactic Acid 1.0 Calcium 7.9 L Total Bilirubin 0.7 AST 41 H ALT 62 Alkaline Phosphatase 203 H Total Protein 7.7 D Albumin 2.3 L 12/30/17 12/30/17 12/30/17 08:05 11:09 16:45 Sodium Potassium Chloride Carbon Dioxide Anion Gap BUN Creatinine Estimated GFR POC Glucose 312 H 126 H Random Glucose Hemoglobin A1c 9.4 H Lactic Acid Calcium Total Bilirubin AST ALT Alkaline Phosphatase Total Protein Albumin 12/30/17 12/31/17 12/31/17 21:49 05:40 07:00 Sodium 137 Potassium 3.9 Chloride 103 Carbon Dioxide 25.3 Anion Gap 9 BUN 18 Creatinine 0.90 Estimated GFR 84 L POC Glucose 285 H 222 H Random Glucose 223 H Hemoglobin A1c Lactic Acid Calcium 8.2 L Total Bilirubin AST ALT Alkaline Phosphatase Total Protein Albumin 12/31/17 11:17 Sodium Potassium Chloride Carbon Dioxide Anion Gap BUN Creatinine Estimated GFR POC Glucose 178 H Random Glucose Hemoglobin A1c Lactic Acid Calcium Total Bilirubin AST ALT Alkaline Phosphatase Total Protein Albumin Imaging: ITS Impressions Ankle X-Ray 12/30/17 00:00 CONCLUSION: Negative for ankle fracture. Marked soft tissue swelling. 3 views of the foot are suggested. Chest X-Ray 12/30/17 00:00 CONCLUSION: No acute cardiopulmonary disease Upper Extremity Ultrasound 12/30/17 00:00 CONCLUSION: 1. Negative for abscess Foot X-Ray 12/31/17 00:00 CONCLUSION: 1. Severe degenerative changes with bony erosion and deformity mid tarsal bones as detailed above. In combination with a headache planar deformity, findings are concerning for a Charcot foot. 2. No acute fracture. Diffuse osseous demineralization. Physical Exam: GENERAL: Well-nourished well-developed, not in acute distress SKIN: Cool and dry, no generalized rash HEAD: Atraumatic. Normocephalic. No temporal or scalp tenderness. EYES: Pupils equal round and reactive. Scleral icterus. No injection or drainage. No petechia ENT: Nothing abnormal detected NECK: Trachea midline. Supple, nontender, no meningeal signs. CARDIOVASCULAR: HS audible. RESPIRATORY: Clear to auscultation bilaterally. GASTROINTESTINAL: Abdomen soft nontender. Ostomy and prior surgical site ok. MUSCULOSKELETAL: Left forearm with less induration and erythema. Area around wrist still red. NEUROLOGICAL: Alert oriented 3. Nonfocal. Psych cooperative IV line sites ok. Port site ok. Assessment and Plan - Plan Left forearm cellulitis. Colon cancer with colostomy in place. Port in place. Immunocompromised host. CAD, HTN Recs: Continue Vanco IV (target 10-15) while in hospital. When ready for discharge ok to transition to oral doxy 100 mg po bid for 7 more days. Dw patient if clinically the area around starts to peak this could represent an abscess and he needs to come back to hospital. Counseled to use sunblock and avoid sun exposure while on doxy. Counseled to drink plenty of water and sit upright after oral doxy to prevent pill induced esophagitis. DORIS wrap and elevation of LUE in sling as tolerated. If continues to improve will consider transition to oral antibiotics. SHERLY Stewart Will sign off please call back if any change in clinical condition or questions.
[2017-12-31] MEDS ORDERED: Pharmacy Ordered Lab Info OTHER ONE (13:45)
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
--- NOTE | 2017-12-31 18:32 | CT ---
EXAM DATE: 12/31/2017 6:22 PM EDT AGE/SEX: 67 years / Male INDICATIONS: Dull bilateral rib pain with deep inspiration for weeks CLINICAL DATA: This is the patient's initial encounter. Patient reports that signs and symptoms have been present for 1 day and indicates a pain score of 4/10. MEDICAL/SURGICAL HISTORY: Diabetes. Carcinoma, colon. Hypertension. Coronary artery stent. ORAL CONTRAST: Prescribed oral contrast ingested. RADIATION DOSE: 6.64 CTDI (mGy) COMPARISON: No prior exams available for comparison. TECHNIQUE: Multiple contiguous axial images were obtained through the abdomen and pelvis following b olus infusion of 86 ml Omnipaque 350 (iohexol) nonionic water-soluble contrast as a single exam dos e. Prescribed oral contrast ingested. Using automated exposure control and adjustment of the mA and/ or kV according to patient size, radiation dose was kept as low as reasonably achievable to obtain op timal diagnostic quality images. DICOM format image data is available electronically for review and comparison. FINDINGS: Lower Lungs: The visualized lower lungs are clear. Liver: The liver is normal in size but mildly heterogeneous decreased in attenuation value. There is no focal mass or ductal dilatation. Small amount of ascitic fluid surrounding the liver margin. The g allbladder is indistinctness and demonstrates no definite calcifications. Spleen: Homogeneous density without enlargement. Pancreas: Unremarkable without mass or calcification. Kidneys: Normal in size and shape. No evidence of mass or hydronephrosis. Adrenal Glands: Unremarkable. Aorta: The aorta and proximal iliac vessels are grossly unremarkable without aneurysmal dilation. Bowel/Mesentery: There is a mildly nonspecific, nonobstructive bowel gas pattern with multiple loops of nondilated air-containing small bowel with multiple small air-fluid levels. Contrast is noted in the colon. There is no free air. Abdominal Wall: Intact. Retroperitoneum: No evidence of adenopathy in the retrocrural, para-aortic, or deep pelvic regions. Bladder: Contours are smooth. Reproductive Organs: No abnormal masses or calcifications seen. Inguinal: The inguinal region is unremarkable without evidence of adenopathy. Bony Structures: Unremarkable. CONCLUSION: 1. Mildly nonspecific, nonobstructive bowel gas pattern which may represent a mild ileus or gastroen teritis. 2. The liver is mildly heterogeneous and indistinct with decreased attenuation and small amount of s urrounding ascitic fluid. The finding is nonspecific and could represent hepatocellular disease. 3. The gallbladder is indistinct with no definite calcifications or biliary obstruction. Electronically signed by: Christiano Peter MD 12/31/2017 6:31 PM EDT
--- NOTE | 2017-12-31 20:17 | CT ---
EXAM DATE: 12/31/2017 8:04 PM EDT AGE/SEX: 67 years / Male INDICATIONS: Chronic right foot pain and abnormal x-ray demonstrating changes characteristic of Josefa cot's joint Charcot joint vs fracture nonunion CLINICAL DATA: This is the patient's initial encounter. Patient reports that signs and symptoms have been present for 1 week and indicates a pain score of 6/10. MEDICAL/SURGICAL HISTORY: Diabetes. Carcinoma, colon. Hypertension. Coronary artery stent. RADIATION DOSE: 5.23 CTDI (mGy) [place] [facility] [place]/2017. . TECHNIQUE: Multiple contiguous axial images were acquired using a multirow detector CT scanner witho ut contrast. Multiplanar reconstruction was performed in the sagittal and coronal planes. Using auto mated exposure control and adjustment of the mA and/or kV according to patient size, radiation dose w as kept as low as reasonably achievable to obtain optimal diagnostic quality images. DICOM format im age data is available electronically for review and comparison. FINDINGS: Extensive destructive changes are noted throughout the midfoot involving the metatarsal tarsal joints and intertarsal joints. There is fragmentation of the bones with sclerosis and deformity. There is d iffuse soft tissue swelling. There is no distinct acute focal fracture. There is destructive change i nvolving the anterior talus and calcaneus. No radiopaque foreign body is identified. There is patchy osteopenia. There are mild degenerative change involving the interphalangeal joints and metatarsal ta rsal joints. CONCLUSION: 1. Extensive destructive change throughout the mid foot most characteristic of Charcot's joint. Infe ction cannot be excluded. 2. Osteopenia and degenerative joint changes. Electronically signed by: Christiano Peter MD 12/31/2017 8:16 PM EDT
[2018-01-01 00:26] VITALS: O2SAT 97
[2018-01-01] MEDS: Vancomycin Inj 1,000 MG in Sodium Chlor 0.9% Inj 250 ML IV.SIG SCH ×2 (02:20→16:05)
[2018-01-01] MEDS ORDERED: Insulin Detemir Inj 1,000 UNIT/10 ML Vial SQ SCH (09:00)
[2018-01-01 09:36] VITALS: BP 168/80; TEMP 98.2
[2018-01-01] MEDS: Pantoprazole Sodium 20 MG DR Tablet PO SCH (09:38)
[2018-01-01] MEDS: Insulin NovoLOG Aspart Correctional Sugar Inj SQ SCH ×2 (09:38→13:57)
[2018-01-01] MEDS: Ranolazine 500 MG 12HR ER Tablet PO SCH (09:38)
[2018-01-01] MEDS: Metoprolol Tartrate 50 MG Tablet PO SCH (09:39)
[2018-01-01] MEDS: Meloxicam 7.5 MG Tablet PO SCH (09:39)
[2018-01-01] MEDS: Lisinopril 5 MG Tablet PO SCH (09:39)
[2018-01-01] MEDS: Pregabalin 75 MG Capsule PO SCH (09:39)
--- NOTE | 2018-01-01 11:22 | P.PNPOD ---
Subjective Interval history: CT results reviewed, findings consistent with stable charcot. This is very chronic in nature and should be addressed in an out patient setting. Patient may benefit from an ankle brace at that time. No podiatric intervention at this admission. Patient should f/u in the office 1-2 weks after d/c. Physical Exam Vital signs: Vital Signs 12/31/17 12:00 12/31/17 16:00 12/31/17 20:00 Temperature 97.9 F 97.8 F 97.9 F Pulse Rate 60 63 65 Respiratory Rate 16 20 18 Blood Pressure 122/58 L 131/61 156/70 H Pulse Oximetry 100 100 100 12/31/17 22:32 01/01/18 00:00 01/01/18 02:50 Temperature 98 F Pulse Rate 64 Respiratory Rate 18 18 18 Blood Pressure 145/67 H Pulse Oximetry 97 01/01/18 04:00 01/01/18 08:00 Temperature 97.9 F 98.2 F Pulse Rate 67 65 Respiratory Rate 18 14 Blood Pressure 165/74 H 168/80 H Pulse Oximetry 97 Intake & Output 12/31/17 01/01/18 01/01/18 18:59 06:59 18:59 Intake Total 850 / 850 Balance 850 / 850 Weight 66.8 kg Intake: IV 250 / 250 Vancomycin Inj 1,000 MG In NS 250 / 250 Inj 250 ML @ 250 mls/hr IV.SIG Q12H [facility] Rx#:[id number] Oral 600 / 600 Other: # Voids 2 5 Date of Last Bowel Movement 12/30/17 12/30/17 Medications and Allergies Active Medications: Active Medications Acetaminophen (Tylenol) 650 mg PO Q4H PRN PRN Reason: Temp > 100.4 Hydrocodone Bitart/Acetaminophen ([place] 5/325) 1 tab PO Q4H PRN PRN Reason: Pain 1 to 10 Last Admin: 01/01/18 02:20 Dose: 1 tab Buspirone HCl (Buspar) 5 mg PO TID [facility] Last Admin: 01/01/18 09:38 Dose: 5 mg Citalopram Hydrobromide (Celexa) 40 mg PO DAILY [facility] Last Admin: 01/01/18 09:38 Dose: 40 mg Clonidine HCl (Catapres) 0.1 mg PO Q6H PRN PRN Reason: SBP>180, DBP>95 Dextrose (D50w Vial) 50 ml IV.PUSH UNSCH PRN PRN Reason: PER HYPOGLYCEMIA PROTOCOL Glucagon (Glucagon Inj) 1 mg OTHER PRN PRN PRN Reason: for Hypoglycemia Protocol Pharmacy Profile Note (Vancomycin Consult Pharmacy) 0 mls @ 0 mls/hr OTHER UNSCH GAMALIEL Vancomycin HCl 1,000 mg/ (Sodium Chloride) 250 mls @ 250 mls/hr IV.SIG Q12H [facility] Last Admin: 01/01/18 02:20 Dose: 250 mls/hr Insulin Aspart (Novolog Insulin Correctional Sugar Inj) 0 unit SQ ACHS [facility]; Protocol Last Admin: 01/01/18 09:38 Dose: Not Given Insulin Detemir (Levemir Inj) 5 unit SQ BID [facility] Last Admin: 01/01/18 09:40 Dose: 5 unit Lisinopril (Prinivil) 5 mg PO DAILY [facility] Last Admin: 01/01/18 09:39 Dose: 5 mg Meloxicam (Mobic) 7.5 mg PO DAILY [facility] Last Admin: 01/01/18 09:39 Dose: 7.5 mg Metformin HCl (Glucophage) 1,000 mg PO BID [facility] Last Admin: 01/01/18 09:39 Dose: 1,000 mg Metoprolol Tartrate (Lopressor) 50 mg PO BID [facility] Last Admin: 01/01/18 09:39 Dose: 50 mg Miscellaneous Information ([facility] Ordered Lab Info) 0 each OTHER ONCE ONE Stop: 01/02/18 13:46 Ondansetron HCl (Zofran Inj) 4 mg IV.PUSH Q6H PRN PRN Reason: NAUSEA OR VOMITING Pantoprazole Sodium (Protonix) 20 mg PO BID [facility] Last Admin: 01/01/18 09:38 Dose: 20 mg Pt Own Med ( Vortioxetine [ Trintellix] 10 Mg) 0 each PO DAILY [facility] Pregabalin (Lyrica) 75 mg PO BID [facility] Last Admin: 01/01/18 09:39 Dose: 75 mg Ranolazine (Ranexa) 500 mg PO Q12H [facility] Last Admin: 01/01/18 09:38 Dose: 500 mg Sodium Chloride (Ns Flush) 2 ml IV.FLUSH BID [facility] Last Admin: 01/01/18 09:39 Dose: 2 ml Sodium Chloride (Ns Flush) 2 ml IV.FLUSH PRN PRN PRN Reason: FLUSH AFTER USING IV ACCESS Allergies Allergy/AdvReac Type Severity Reaction Status Date / Time No Known Allergies Allergy Verified 12/29/17 16:48 Home Medications Medication Instructions Recorded Confirmed Type buspirone 5 mg PO TID 12/29/17 12/29/17 History citalopram 40 mg PO DAILY 12/29/17 12/29/17 History lisinopril 5 mg PO DAILY 12/29/17 12/29/17 History meloxicam 7.5 mg PO DAILY 12/29/17 12/29/17 History metformin 1,000 mg PO BID 12/29/17 12/29/17 History metoprolol tartrate 50 mg PO BID 12/29/17 12/29/17 History pantoprazole 20 mg PO BID 12/29/17 12/29/17 History pregabalin [Lyrica] 75 mg PO BID 12/29/17 12/29/17 History ranolazine [Ranexa] 500 mg PO Q12H 12/29/17 12/29/17 History vortioxetine [Trintellix] 10 mg PO DAILY 12/29/17 12/29/17 History Results - Labs CBC & Chem 7: 12/31/17 05:40 12/31/17 05:40 Laboratory Results - last 24 hr 12/31/17 12/31/17 12/31/17 16:00 16:19 20:47 POC Glucose 173 H 253 H Vancomycin Trough 10.1 H 01/01/18 07:54 POC Glucose 109 Vancomycin Trough - Imaging Impressions Abdomen/Pelvis CT 12/31/17 00:00 CONCLUSION: 1. Mildly nonspecific, nonobstructive bowel gas pattern which may represent a mild ileus or gastroenteritis. 2. The liver is mildly heterogeneous and indistinct with decreased attenuation and small amount of surrounding ascitic fluid. The finding is nonspecific and could represent hepatocellular disease. 3. The gallbladder is indistinct with no definite calcifications or biliary obstruction. Foot CT 12/31/17 00:00 CONCLUSION: 1. Extensive destructive change throughout the mid foot most characteristic of Charcot's joint. Infection cannot be excluded. 2. Osteopenia and degenerative joint changes. Foot X-Ray 12/31/17 00:00 CONCLUSION: 1. Severe degenerative changes with bony erosion and deformity mid tarsal bones as detailed above. In combination with a headache planar deformity, findings are concerning for a Charcot foot. 2. No acute fracture. Diffuse osseous demineralization. - Procedures None
[2018-01-01 11:49] VITALS: RESP 18
[2018-01-01 19:29] VITALS: PULSE 72
[2018-01-02] MEDS ORDERED: Pharmacy Ordered Lab Info OTHER ONE (13:45)
--- NOTE | 2018-01-05 17:36 | P.DS ---
Date of admission: 12/30/17 00:05 Primary care physician: Tomasz Love MD Attending physician on discharge: Sabine Givens Anticipated date of discharge: 01/01/18 Brief History from admission: 67 y/o male with a history of HTN, DM, Colon cancer, and CAD presented to the ED with complaints of redness and pain to the Left forearm. He states on Saturday he developed a red spot and over the past 2 days it got worse and became inflamed and itching. He denies getting bit by anything or any trauma. No fever , chills, chest pain. He does complain of rib pain when taking a deep breath, intermittently. DS: Diagnosis - Discharge Diagnosis (1) Cellulitis of arm, left Status: Acute (2) SIRS (systemic inflammatory response syndrome) Status: Acute (3) Diabetes mellitus with hyperglycemia Status: Acute DS: Medications - Discharge Medications Prescriptions: doxycycline hyclate 100 mg PO Q12H 7 Days #14 tab hydrocodone-acetaminophen [[place]] 1 tab PO Q6H PRN #12 tab PRN Reason: Acute Pain insulin glargine [Lantus U-100 Insulin] 10 unit SUB-Q DAILY 30 Days #1 vial DS: Summary Hospital Course: 67 y/o male with a history of HTN, DM, Colon cancer, and CAD presented to the ED with complaints of redness and pain to the Left forearm. Cellulitis, left forearm, SIRS with elevated lactic acid, much improved Soft tissue US negative for underlying abscess -ID following, appreciate assistance. Continue on IV vancomycin while in hospital and transition to Doxy 100mg BID x 7 days. Cleared for discharge from ID standpoint. -pain management with bowel regimen -PT/OT eval - no needs identified DM, poorly controlled Hgb A1c 9.4 -continue patient on home dose of Metformin -started on Levemir 5u BID, BS still running in mid to high 200s. Increased to 10U BID. Patient given diabetic education, discharged on Lantus 2/2 cost. -continue Accu checks with SSI Hypertension, chronic, uncontrolled -Continue on lisinopril 5 mg daily and metoprolol 50 mg twice daily. -Clonidine prn with parameters -monitor BP and adjust treatment accordingly CAD s/p cardiac stent patient has no cardiac complaints at present -Continue on home dose of Ranexa -monitor Hx of right ankle fracture with persistent pain patient did not follow up with orthopedic as outpatient due to insurance costs XR right ankle negative for fracture but shows marked soft tissue swelling, 3 views of the foot recommended. XR right foot showed severe degenerative changes with bony erosion and deformity concerning for Charcot joint -Patient seen in consultation by Podiatry. CT foot showed extensive destructive changes t/o the midfoot c/w Charcot joint -Per podiatry, stable Charcot, chronic in nature, f/u as outpatient in 1-2 weeks Bilateral rib pain with deep inspiration ?etiology, CXR unremarkable, patient is not in any respiratory distress, pulse Ox 98% on RA -DW Dr. Givens, given history of colon cancer will obtain CT of the abdomen and pelvis for further evaluation -CT revealed mild nonspecific bowel gas pattern, mildly heterogeneous liver with small amount of surrounding ascitic fluid and normal gallbladder. Discussed findings with patient recommend he follow-up with his PCP as an outpatient. Depression -continue on home dose of Buspar and Celexa - Time Spent with Patient Total time spent providing and/or coordinating discharge services: Greater than 30 minutes Exam Narrative: GENERAL: WDWN male patient, INAD. Awake and alert. Oriented x 4. Appears comfortable. SKIN: Warm and dry. LUE + mild edema in hand extending up forearm with significant erythema and warmth over volar surface, improving with decreasing erythema and edema. +Tender to palpation. No discrete abscess appreciated. HEENT: Atraumatic. Normocephalic. Pupils equal and round. No scleral icterus. No injection or drainage. No nasal bleeding or discharge. Mucous membranes pink and moist. NECK: Trachea midline. Airway patent. CARDIOVASCULAR: Regular rate and rhythm. No murmur appreciated. RESPIRATORY: No accessory muscle use. Clear to auscultation. Breath sounds equal bilaterally. GASTROINTESTINAL: Abdomen soft, non-tender, nondistended. +Colostomy LLQ. +BS. MUSCULOSKELETAL: LUE as stated above. Right ankle with edema noted around ankle. Decreased ROM. NEUROLOGICAL: Awake and alert. No obvious cranial nerve deficits. Motor grossly within normal limits. No focal neurologic finding appreciated. Normal speech. PSYCHIATRIC: Appropriate mood and affect; insight and judgment normal. Results Procedures completed during hospitalization: None - Impressions ITS Impressions Ankle X-Ray 12/30/17 00:00 CONCLUSION: Negative for ankle fracture. Marked soft tissue swelling. 3 views of the foot are suggested. Chest X-Ray 12/30/17 00:00 CONCLUSION: No acute cardiopulmonary disease Upper Extremity Ultrasound 12/30/17 00:00 CONCLUSION: 1. Negative for abscess Abdomen/Pelvis CT 12/31/17 00:00 CONCLUSION: 1. Mildly nonspecific, nonobstructive bowel gas pattern which may represent a mild ileus or gastroenteritis. 2. The liver is mildly heterogeneous and indistinct with decreased attenuation and small amount of surrounding ascitic fluid. The finding is nonspecific and could represent hepatocellular disease. 3. The gallbladder is indistinct with no definite calcifications or biliary obstruction. Foot CT 12/31/17 00:00 CONCLUSION: 1. Extensive destructive change throughout the mid foot most characteristic of Charcot's joint. Infection cannot be excluded. 2. Osteopenia and degenerative joint changes. Foot X-Ray 12/31/17 00:00 CONCLUSION: 1. Severe degenerative changes with bony erosion and deformity mid tarsal bones as detailed above. In combination with a headache planar deformity, findings are concerning for a Charcot foot. 2. No acute fracture. Diffuse osseous demineralization. Discharge Plan - Discharge Disposition Patient Disposition: 01 Discharge Home - Discharge Condition Condition: Stable - Discharge Order Discharge Orders: Discharge Order (Routine); Ordered 01/01/18 Ordered By: Ginger Spivey - Discharge Details Anticipated Discharge Date: 01/01/18 - Physicians Team Primary Care Provider: Tomasz Love Attending Provider: Sabine Givens Other Providers: Dolroes Ontiveros MD ; Lauren Aguilar ; Kezia Kasper DPM - Rxs /Orders / Referrals /Forms Prescriptions: New doxycycline hyclate 100 mg Tablet 100 mg PO Q12H 7 Days Qty: 14 RF: 0 hydrocodone-acetaminophen [[place]] 5-325 mg Tablet 1 tab PO Q6H PRN (Reason: Acute Pain) Qty: 12 RF: 0 insulin glargine [Lantus U-100 Insulin] 100 unit/mL Solution 10 unit SUB-Q DAILY 30 Days Qty: 1 RF: 0 Continue buspirone 5 mg Tablet 5 mg PO TID citalopram 40 mg Tablet 40 mg PO DAILY lisinopril 5 mg Tablet 5 mg PO DAILY meloxicam 7.5 mg Tablet 7.5 mg PO DAILY metformin 1,000 mg Tablet 1,000 mg PO BID metoprolol tartrate 50 mg Tablet 50 mg PO BID pantoprazole 20 mg Tablet,Delayed Release (Dr/Ec) 20 mg PO BID pregabalin [Lyrica] 75 mg Capsule 75 mg PO BID ranolazine [Ranexa] 500 mg Tablet Extended Release 12 Hr 500 mg PO Q12H vortioxetine [Trintellix] 10 mg Tablet 10 mg PO DAILY Referrals: [facility] [Outside] - See Instructions ( Please call the physician' s office to book the appointment to be seen within one week.) Tomasz Love MD [Primary Care Provider] - 01/06/18 9:30 am ( Please call the physician's office to book the appointment to be seen within 3 days.) Kezia Kasper DPM [Physician] - 01/09/18 1:30 pm (This appt is set for [place] office at [address] [place] [address] Dr. [email or web address]) - Discharge Instructions Patient Printed Instructions: Cellulitis (DC), Diabetic Hyperglycemia (DC) Additional Instructions: Your Health Problems: Goals to Promote Your Health: * To prevent worsening of your condition * To maintain your health at the optimal level Directions to Meet Your Goals: * Take your medications as prescribed * Follow your dietary instruction * Follow activity as directed * Keep your appointments as scheduled * Take your immunizations and boosters as scheduled * If your symptoms worsen call your PCP * If no PCP go to Urgent Care or Emergency Room Smoking is dangerous to your health. Avoid second hand smoke. You may reach the 24-hour crisis hotline for domestic abuse at .
== END 2018-01-01 14:58 | disposition home or self-care (01) ==
LOC: NEDDLT 19:09 → N05 12-30 00:05
PROVIDERS: ADMIT Family Medicine; ATTEND Family Medicine